=== PATIENT | male | born 1985 | race Caucasian/White ===

== ENCOUNTER 2018-01-03 15:11 | Emergency (ER) | payer BC ==
--- NOTE | 2018-01-03 17:34 | RAD REPORT ---
EXAM DESCRIPTION: Rosalba Baez (2 Views)01/03/2018 5:08 pm CLINICAL HISTORY: Chest pain COMPARISON: 2014 FINDINGS: The lungs appear clear of acute infiltrate. The heart is normal size IMPRESSION: No acute abnormalities displayed
--- NOTE | 2018-01-03 17:35 | RAD REPORT ---
EXAM DESCRIPTION: Coy Cannon Left01/03/2018 4:50 pm CLINICAL HISTORY: Left leg pain status post injury FINDINGS: No fracture is seen. Edema is present within the subcutaneous tissues
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
[2018-01-03] MEDS ORDERED: IBUPROFEN 400 MG TAB ONE (17:53)
[2018-01-03 18:09] VITALS: BP 134/81; TEMP 97.3; O2SAT 100
== END 2018-01-03 18:02 | disposition home or self-care (01) ==
LOC: ER 15:11
DX: M79.662 Pain in left lower leg (principal); V49.40XA Driver injured in collision with unspecified motor vehicles in traffic accident, initial encounter; Z88.8 Allergy status to other drugs, medicaments and biological substances
CPT/HCPCS: 71046; 99284